=== PATIENT | female | born 1960 | race African-American/Black ===

== ENCOUNTER 2016-06-13 12:20 | Emergency (ER) | payer OTHER | END 2016-06-13 14:14 | disposition home or self-care (01) | LOC: ER 12:20 | DX: S20.212A Contusion of left front wall of thorax, initial encounter (principal); I10 Essential (primary) hypertension; Z88.0 Allergy status to penicillin; W17.89XA Other fall from one level to another, initial encounter | CPT/HCPCS: 71101; 93005; 99284; A9270-GY ==

== ENCOUNTER 2016-07-10 13:21 | Emergency (ER) | payer OTHER ==
[2016-07-10 15:16] LABS: BASOPHILS 0.2 %; BASOPHILS ABSOLUTE 0.01 10/3/uL (0.0-0.16); EOSINOPHILS 1.6 %; EOSINOPHILS ABSOLUTE 0.09 10/3/uL (0.0-0.53); ER CBC TAT 0 Hrs 05 Mins; HEMATOCRIT 35.9 % (36.0-48.0); HEMOGLOBIN 12.5 g/dL (12.0-16.0); IMMATURE GRANULOCYTES 0.2 %; IMMATURE GRANULOCYTES ABSOLUTE 0.01 10/3/uL (0.0-0.11); LYMPHOCYTES 54.4 %; LYMPHOCYTES ABSOLUTE 3.05 10/3/uL (0.67-4.30); MEAN CORPUS HGB CONC 34.8 g/dL (32.0-36.0); MEAN CORPUSCULAR HEMOGLOB 31.3 pg (26.0-34.0); MEAN CORPUSCULAR VOLUME 89.8 fL (80-100); MEAN PLATELET VOLUME 10.4 fL (9.2-13.0); MONOCYTES 5.3 %; NEUTROPHILS 38.3 %; NEUTROPHILS ABSOLUTE 2.15 10/3/uL (2.02-8.40); PLATELET COUNT 184 10/3/uL (150-400); RBC DISTRIBUTION WIDTH 14.3 % (12.0-16.0); WHITE BLOOD CELLS 5.6 10/3/uL (4.5-10.5)
[2016-07-10 15:18] LABS: MANUAL DIFF NO %
[2016-07-10 15:22] LABS: PARTIAL THROMBO TIME 30.4 SEC (22.5-37.2); PROTIME (NOT ORD) 12.7 SEC (12.0-14.5)
[2016-07-10 15:31] LABS: BUN (BLOOD UREA NITROGEN) 10 MG/DL (6-23); CALCIUM, SERUM 8.9 MG/DL (8.5-10.4); CHEST PAIN PROFILE TAT 0 Hrs 20 Mins; CHLORIDE, SERUM 106 MMOL/L (96-112); CO2 (CARBON DIOXIDE) 31 MMOL/L (24-34); CREATININE 0.71 MG/DL (0.55-1.02); GFR AFRICAN AMERICAN 109 ML/MIN (>=60); GFR NON AFRICAN AMERICAN 94 ML/MIN (>=60); POTASSIUM, SERUM 3.4 MMOL/L (3.5-5.3); SODIUM, SERUM 143 MMOL/L (135-148); TROPONIN I <0.02 NG/ML (<0.05)
[2016-07-10 15:32] LABS: GLUCOSE, SERUM 132 MG/DL (60-99)
== END 2016-07-10 16:12 | disposition home or self-care (01) ==
LOC: ER 13:21
PROVIDERS: Nurse Practitioner Acute Care
DX: R07.89 Other chest pain (principal); I10 Essential (primary) hypertension; Z88.0 Allergy status to penicillin
CPT/HCPCS: 71020; 71100-LT; 80048; 83735; 84484; 85025; 85610; 85730; 93005; 99285